=== PATIENT | female | born 1995 | race Caucasian/White ===

== ENCOUNTER 2019-06-19 10:32 | Emergency (ER) | payer BC ==
[~2019-06-19] VITALS: Ht 170.2 cm; Wt 52.6 kg
[2019-06-19 10:43] VITALS: Ht 170.2 cm; Wt 52.6 kg
[2019-06-19 12:56] VITALS: BP 143/85
== END 2019-06-19 12:56 | disposition home or self-care (01) ==
LOC: ED 10:32
DX: N83.201 Unspecified ovarian cyst, right side (principal); J45.909 Unspecified asthma, uncomplicated; Z88.8 Allergy status to other drugs, medicaments and biological substances
CPT/HCPCS: Q0092